=== PATIENT | male | born 1975 | race Caucasian/White ===

== ENCOUNTER 2021-12-08 16:14 | Inpatient (IN) | payer OTHER, SELFPAY ==
[2021-12-08] VITALS (12 sets, daily range): BP systolic 142–222; BP diastolic 83–111; PULSE 52–67; RESP 10–21; TEMP 36.1–36.8; O2SAT 93–98; BMI 29.8
--- NOTE | 2021-12-08 16:30 | DI.RAD.S_ITS ---
PROCEDURE: XR CHEST 1V INDICATIONS: chest pain TECHNIQUE: One view of the chest was acquired. COMPARISON: None. FINDINGS: Surgical changes and devices: None. Lungs and pleura: Lungs are clear. No pleural effusions or pneumothorax. Mediastinum: Mediastinal contours appear normal. Heart size is normal. Bones and chest wall: No suspicious bony lesions. Overlying soft tissues appear unremarkable. IMPRESSION: No acute process. Dictated by: Deshaun Lira M.D. on 12/08/2021 at 16:56 Approved by: Deshaun Lira M.D. on 12/08/2021 at 16:58
--- NOTE | 2021-12-08 16:39 | ED.CHESTPAIN ---
HPI - Chest Pain General Chief Complaint: Chest Pain Stated Complaint: CHEST PAIN Time Seen by Provider: 12/08/21 16:39 Source: patient Mode of arrival: Ambulatory Limitations: no limitations Limitations: no limitations History of Present Illness HPI narrative: This is a 46-year-old male who comes in with complaint of intermittent chest pain. Patient states he has been having symptoms since the holidays this winter. He has seen his primary care physician who started him on propranolol, ordered an echo he does not know the results and he has an event monitor ordered to be placed Wednesday. He has not had any stress testing. He typically would get chest pressure well-seated mostly in the evening but he is find it becomes increasingly more frequent with exertion, walking and takes longer longer to resolve. He does not have a present at this moment but he states walking into the hospital gave him that sensation but resolved while seated. Episodes when it becomes quite intense he feels sweaty and short of breath. He denies any nausea or vomiting. He states the pain will radiate from the center of his chest out both sides and into his arms. Feels like a pressure sensation that will become pain when very intense. He is currently on lisinopril, Mobic, hydrochlorothiazide, escitalopram, propranolol and has been prescribed nitro sublingual but has never tried it. He is not on aspirin or any other blood thinners daily. He has had an appendectomy. No allergies to drugs. He smokes a half pack daily, no alcohol or illicit. His father started having cardiac stents and coronary artery disease in his mid 50s and had CABG x2 but ultimately during his 2nd CABG. He is accompanied by his today. His primary care is at the [facility]. Related Data Home Medications Medication Instructions Recorded Confirmed escitalopram oxalate 5 mg tablet 20 mg PO DAILY 12/08/21 12/08/21 hydrochlorothiazide 25 mg tablet 25 mg PO DAILY 12/08/21 12/08/21 lisinopril 20 mg tablet 20 mg PO DAILY 12/08/21 12/08/21 meloxicam 15 mg tablet 15 mg PO DAILY PRN 12/08/21 12/08/21 nitroglycerin 0.4 mg sublingual 0.4 mg SUBLINGUAL [id number] PRN 12/08/21 12/08/21 tablet propranolol 20 mg tablet 40 mg PO BID PRN 12/08/21 12/08/21 Allergies Allergy/AdvReac Type Severity Reaction Status Date / Time No Known Drug Allergies Allergy Verified 12/08/21 16:26 Review of Systems Review of Systems ROS Unobtainable: All systems reviewed & are unremarkable except as noted in HPI and below Patient History Medical History (Updated 12/08/21 @ 22:06 by ALAN Medina) Chest pain at rest Exertional chest pain PTSD (post-traumatic stress disorder) Family History (Updated 12/08/21 @ 22:05 by ALAN Medina) Father CAD (coronary artery disease) Mother Hypertension Social History household members: spouse and family Smoking Status: Current every day smoker Smoking Status: Current every day smoker alcohol intake frequency: 0-2 drinks per day Substance Use Type: does not use Exam Narrative Exam Narrative: GENERAL: Alert and oriented x three, male in mild distress. HEENT: Head normocephalic, atraumatic, EOMI, pupils reactive, face symmetric, moist mucous membranes NECK: Supple, full range of motion CARDIOVASCULAR: Regular rate and rhythm without murmurs, rubs or gallops. RESPIRATORY: Breath sounds equal bilaterally, no wheezes rales or rhonchi. ABDOMEN: Soft, nontender. Normoactive bowel sounds all 4 quadrants. No guarding or rebound, rigidity, no mass : No CVA tenderness EXTREMITIES: Normal range of motion, no clubbing or edema. Neurovascularly intact NEUROLOGICAL: Cranial nerves II through XII grossly intact. Moving all extremities SKIN: Warm, dry, no petechiae, no rashes or lesions. Initial Vital Signs Initial Vital Signs: Vital Signs Temperature 98.3 F 12/08/21 16:26 Pulse Rate 64 12/08/21 16:26 Respiratory Rate 18 12/08/21 16:26 Blood Pressure 222/111 H 12/08/21 16:26 Pulse Oximetry 98 12/08/21 16:26 Course Orders Ordered: Acetaminophen (Acetaminophen 325 Mg Tablet) 650 mg PO Q6HR PRN PRN Reason: Fever/Mild Pain (1-3) Last Admin: 12/09/21 04:30 Dose: 650 mg Documented by: CECE Aspirin (Aspirin Ec 81 Mg Tablet) 81 mg PO DAILY [facility] Enalaprilat (Enalaprilat 2.5 Mg/ 2 Ml Vial) 0.625 mg IV Q6H [facility] Last Admin: 12/09/21 04:05 Dose: Not Given Documented by: CECE Enoxaparin Sodium (Enoxaparin 40 Mg/0.4 Ml Syringe) 40 mg SUBCUT DAILY [facility] Influenza Virus Vaccine (Influenza Vaccine Qiv 0.5 Ml Syringe) 0.5 ml IM .ONCE ONE Stop: 12/09/21 09:01 Morphine Sulfate (Morphine 2 Mg/Ml Inj) 2 mg IV Q5MIN PRN PRN Reason: Chest Pain Naloxone HCl (Naloxone 0.4 Mg/Ml Vial) 0.2 mg IV Q2MIN PRN PRN Reason: Opiate Reversal Nitroglycerin (Nitroglycerin 0.4 Mg Sl Tab) 0.4 mg SL [id number] PRN PRN Reason: Chest Pain Ondansetron HCl (Ondansetron 4 Mg/2 Ml Inj) 4 mg IV Q6HR PRN PRN Reason: Nausea And Vomiting Discontinued Medications Aspirin (Aspirin 81 Mg Chew Tab) 324 mg PO NOW ONE Stop: 12/08/21 16:42 Last Admin: 12/08/21 16:50 Dose: 324 mg Documented by: LIVIER Enalaprilat (Enalaprilat 2.5 Mg/ 2 Ml Vial) 0.625 mg IV NOW ONE Stop: 12/08/21 22:00 Last Admin: 12/08/21 22:43 Dose: Not Given Documented by: CECE Influenza Virus Vaccine (Influenza Vaccine Qiv 0.5 Ml Syringe) 0.5 ml IM .ONCE ONE Stop: 12/08/21 21:49 Last Admin: 12/09/21 00:26 Dose: Not Given Documented by: CECE Nitroglycerin (Nitroglycerin 0.4 Mg Sl Tab) 0.4 mg SL NOW ONE Stop: 12/08/21 16:50 Last Admin: 12/08/21 16:52 Dose: 0.4 mg Documented by: LIVIER Reevaluation(s) Reevaluation #1: Patient continues to be asymptomatic. Nitro give him a headache. Pressure has improved significantly. Discussed his EKG did not have any acute changes 1st to 2nd. Troponin initial troponin is negative but even if the 2nd is negative discussed with patient I would like to keep him for observation and stress testing and if positive will discuss with Cardiology about potential transfer. Time: 17:45 Consultations Consultation #1: PAULA Bello, hospitalist Time: 19:37 Vital Signs Vital signs: Vital Signs - 8 hr 12/08/21 16:26 12/08/21 16:30 12/08/21 17:00 Temperature 98.3 F Pulse Rate 65 62 67 Respiratory Rate 18 21 Blood Pressure 221/111 H 203/98 H 169/84 H Pulse Oximetry 98 98 94 12/08/21 17:30 12/08/21 18:00 12/08/21 18:30 Temperature Pulse Rate 60 60 55 L Respiratory Rate 15 15 10 L Blood Pressure 145/85 H 142/90 H 150/94 H Pulse Oximetry 95 95 96 12/08/21 19:00 Temperature Pulse Rate 54 L Respiratory Rate 11 L Blood Pressure 163/89 H Pulse Oximetry 95 MDM - Chest Pain Lab Data Result diagrams: 12/09/21 04:00 12/09/21 04:00 Labs: Lab Results 12/08/21 12/08/21 12/08/21 Range/Units 16:32 16:32 16:32 WBC 11.8 H (4.5-11.0) X10^3/uL RBC 5.41 (4.5-5.9) X10^6/uL Hgb 15.2 (13.5-17.5) g/dL Hct 44.4 (41-53) % MCV 82.0 (80-100) fL MCH 28.0 (26-34) PG MCHC 34.2 (30-36) % RDW 13.7 (11.6-14.8) % Plt Count 273 (150-400) X10^3/uL Neut % (Auto) 59.2 (50-75) % Lymph % (Auto) 27.7 (25-40) % [place] % (Auto) 10.9 (3-14) % Eos % (Auto) 1.9 L (2-4) % Baso % (Auto) 0.3 (0-2) % Neut # (Auto) 7000 (5211-7723) /uL Lymph # (Auto) 3300 (7920-3930) /uL [place] # (Auto) 1300 H (0-900) /uL Eos # (Auto) 200 (0-450) /uL Baso # (Auto) 0 (0-100) /uL Sodium 138 (137-145) mmol/L Potassium 4.1 (3.4-5.1) mmol/L Chloride 101 (98-107) mmol/L Carbon Dioxide 28 (22-32) mmol/L BUN 25 H (9-20) mg/dL Creatinine 1.02 (0.66-1.25) mg/dL Estimated GFR > 60.0 (>60) mL/min BUN/Creatinine Ratio 24.5 H (6-22) Glucose 99 (70-100) mg/dL Hemoglobin A1c (4.0-6.0) % Calcium 9.7 (8.4-10.2) mg/dL Magnesium 2.0 (1.6-2.3) mg/dL Total Bilirubin 0.5 (0.2-1.3) mg/dL AST 29 (17-59) IU/L ALT 33 (<50) IU/L Alkaline Phosphatase 102 (38-126) U/L Total Creatine Kinase 86 (55-170) U/L CK-MB (CK-2) TNP CK-MB (CK-2) Rel Index TNP Troponin I < 0.012 (0.01-0.034) ng/mL NT-Pro-B Natriuret Pep 246 H (<125) pg/mL Total Protein 8.2 (6.3-8.2) g/dL Albumin 4.4 (3.5-5.0) g/dL Globulin 3.8 (1.7-4.1) g/dL Albumin/Globulin Ratio 1.2 (1.0-2.8) Lipase 150 (23-300) U/L SARS-CoV-2 (PCR) (Negative) 12/08/21 12/08/21 12/08/21 Range/Units 16:32 16:32 16:54 WBC (4.5-11.0) X10^3/uL RBC (4.5-5.9) X10^6/uL Hgb (13.5-17.5) g/dL Hct (41-53) % MCV (80-100) fL MCH (26-34) PG MCHC (30-36) % RDW (11.6-14.8) % Plt Count (150-400) X10^3/uL Neut % (Auto) (50-75) % Lymph % (Auto) (25-40) % [place] % (Auto) (3-14) % Eos % (Auto) (2-4) % Baso % (Auto) (0-2) % Neut # (Auto) (8996-8510) /uL Lymph # (Auto) (9630-3389) /uL [place] # (Auto) (0-900) /uL Eos # (Auto) (0-450) /uL Baso # (Auto) (0-100) /uL Sodium (137-145) mmol/L Potassium (3.4-5.1) mmol/L Chloride (98-107) mmol/L Carbon Dioxide (22-32) mmol/L BUN (9-20) mg/dL Creatinine (0.66-1.25) mg/dL Estimated GFR (>60) mL/min BUN/Creatinine Ratio (6-22) Glucose (70-100) mg/dL Hemoglobin A1c 5.6 (4.0-6.0) % Calcium (8.4-10.2) mg/dL Magnesium 2.1 (1.6-2.3) mg/dL Total Bilirubin (0.2-1.3) mg/dL AST (17-59) IU/L ALT (<50) IU/L Alkaline Phosphatase (38-126) U/L Total Creatine Kinase (55-170) U/L CK-MB (CK-2) CK-MB (CK-2) Rel Index Troponin I (0.01-0.034) ng/mL NT-Pro-B Natriuret Pep (<125) pg/mL Total Protein (6.3-8.2) g/dL Albumin (3.5-5.0) g/dL Globulin (1.7-4.1) g/dL Albumin/Globulin Ratio (1.0-2.8) Lipase (23-300) U/L SARS-CoV-2 (PCR) Negative (Negative) 12/08/21 Range/Units 18:34 WBC (4.5-11.0) X10^3/uL RBC (4.5-5.9) X10^6/uL Hgb (13.5-17.5) g/dL Hct (41-53) % MCV (80-100) fL MCH (26-34) PG MCHC (30-36) % RDW (11.6-14.8) % Plt Count (150-400) X10^3/uL Neut % (Auto) (50-75) % Lymph % (Auto) (25-40) % [place] % (Auto) (3-14) % Eos % (Auto) (2-4) % Baso % (Auto) (0-2) % Neut # (Auto) (3605-1117) /uL Lymph # (Auto) (1641-4021) /uL [place] # (Auto) (0-900) /uL Eos # (Auto) (0-450) /uL Baso # (Auto) (0-100) /uL Sodium (137-145) mmol/L Potassium (3.4-5.1) mmol/L Chloride (98-107) mmol/L Carbon Dioxide (22-32) mmol/L BUN (9-20) mg/dL Creatinine (0.66-1.25) mg/dL Estimated GFR (>60) mL/min BUN/Creatinine Ratio (6-22) Glucose (70-100) mg/dL Hemoglobin A1c (4.0-6.0) % Calcium (8.4-10.2) mg/dL Magnesium (1.6-2.3) mg/dL Total Bilirubin (0.2-1.3) mg/dL AST (17-59) IU/L ALT (<50) IU/L Alkaline Phosphatase (38-126) U/L Total Creatine Kinase (55-170) U/L CK-MB (CK-2) CK-MB (CK-2) Rel Index Troponin I < 0.012 (0.01-0.034) ng/mL NT-Pro-B Natriuret Pep (<125) pg/mL Total Protein (6.3-8.2) g/dL Albumin (3.5-5.0) g/dL Globulin (1.7-4.1) g/dL Albumin/Globulin Ratio (1.0-2.8) Lipase (23-300) U/L SARS-CoV-2 (PCR) (Negative) Imaging Data Chest x-ray: Radiologist's Impression: Launch?[address] [address] XRay Report Signed Patient: Carlo Abdi MR#: [id number] : 1975 Acct:[id number] Age/Sex: 46 / M Date of Service: 12/08/21 Loc: ED Accession Number: [id number] ?? Procedure: XR chest 1V Ordering Provider: Carey Mccall D.O. PROCEDURE:? XR CHEST 1V ? INDICATIONS:? chest pain ? TECHNIQUE:? One view of the chest was acquired.? ? COMPARISON:? None. ? FINDINGS:? ? Surgical changes and devices:? None.? ? Lungs and pleura:? Lungs are clear.? No pleural effusions or pneumothorax.? ? Mediastinum:? Mediastinal contours appear normal.? Heart size is normal.? ? Bones and chest wall:? No suspicious bony lesions.? Overlying soft tissues appear unremarkable.? ? IMPRESSION:? No acute process. ? ? Dictated by: Deshaun Lira M.D. on 12/08/2021 at 16:56 ? ? Approved by: Deshaun Lira M.D. on 12/08/2021 at 16:58 ECG Data Attestation: I personally reviewed and interpreted this ECG as follows: Interpretation: Sinus rhythm rate of 63 IA 136 QRS of 94 and QTC of 411. Small Q-wave in 2 3 AVF states 1 mL of elevation in V2 V3. No priors for comparison. Patient currently states he is asymptomatic. EKG2. Sinus rhythm rate of 62 IA 148 QRS of 92 and QTC of 418. EKG appears similar to prior from today with no dynamic changes. EKG 3 sinus bradycardia, rate of 55 IA 148 QRS of 96 and QTC 419. LVH criteria. EKG similar to prior EKGs from today. No dynamic changes. MDM Narrative Medical decision making narrative: This is a 46-year-old male who comes emergency department with complaint of chest pain. Patient states he has had intermittent chest pain initially just with rash and now increasingly with exertion which has become more persistent and prolonged. Patient initial EKG has some concerns for ST elevation but he is without chest pain currently. He is quite hypertensive so was given a dose of nitro. Discussed headache. He has not had any additional chest pain and repeat EKG was negative with initial negative troponin. Patient's chest x-ray and labs do not show other acute changes discussed with patient even if a 2nd troponin is negative I would like to keep him for observation and stress testing and if positive plan for transfer for heart catheterization. Patient signed out to Dr. Harmon while awaiting callback from hospitalist for observation. Patient has 2 negative troponins, no dynamic EKG changes. Likely LVH on her EKG but he is asymptomatic without chest pain actively although there is some elevation in V2 V3 leads. Discharge Plan Departure Patient Disposition: Admitted As Inpatient Clinical Impression: Unstable angina Admit Date/Time: 12/08/21 20:33 Admit Provider: Nannette Bello
[2021-12-08 16:43] LABS: Add Manual Diff / Slide Review NO; Basophils Absolute Auto 0 /uL (0-100); Basophils Percent Auto 0.3 % (0-2); Eosinophils Absolute Auto 200 /uL (0-450); Eosinophils Percent Auto 1.9 % (2-4); Hematocrit 44.4 % (41-53); Hemoglobin 15.2 g/dL (13.5-17.5); Lymphocytes Absolute Auto 3300 /uL (1100-4500); Lymphocytes Percent Auto 27.7 % (25-40); Mean Corpuscular HGB Conc 34.2 % (30-36); Monocytes Absolute Auto 1300 /uL (0-900); Monocytes Percent Auto 10.9 % (3-14); Neutrophils Absolute Auto 7000 /uL (1500-7000); Neutrophils Percent Auto 59.2 % (50-75); Platelet Count 273 X10^3/uL (150-400); Red Blood Cell Count 5.41 X10^6/uL (4.5-5.9); Red Cell Distribution Width 13.7 % (11.6-14.8); White Blood Cell Count 11.8 X10^3/uL (4.5-11.0)
[2021-12-08] MEDS: ASPIRIN 81 MG CHEW TAB 324 MG PO (16:50)
[2021-12-08] MEDS: NITROGLYCERIN 0.4 MG SL TAB SL (16:52)
[2021-12-08 16:59] LABS: Alanine Aminotransferase 33 IU/L (<50); Albumin 4.4 g/dL (3.5-5.0); Albumin Globulin Ratio 1.2 (1.0-2.8); Alkaline Phosphatase 102 U/L (38-126); Aspartate Aminotransferase 29 IU/L (17-59); BUN Creatinine Ratio 24.5 (6-22); Bilirubin Total 0.5 mg/dL (0.2-1.3); Blood Urea Nitrogen 25 mg/dL (9-20); Calcium 9.7 mg/dL (8.4-10.2); Carbon Dioxide 28 mmol/L (22-32); Chloride 101 mmol/L (98-107); Creatine Kinase 86 U/L (55-170); Estimated Glomerular Filt Rate > 60.0 mL/min (>60); Globulin 3.8 g/dL (1.7-4.1); Glucose 99 mg/dL (70-100); HEMOLYSIS 27 (0-50); Lipase 150 U/L (23-300); Potassium 4.1 mmol/L (3.4-5.1); Sodium 138 mmol/L (137-145); Total Protein 8.2 g/dL (6.3-8.2)
[2021-12-08 17:06] LABS: NT-proBNP (BNP-Adult 18+) 246 pg/mL (<125)
[2021-12-08 17:09] LABS: Troponin I < 0.012 ng/mL (0.01-0.034)
[2021-12-08 17:20] LABS: COVID19 -Nasal RAPID Negative (Negative)
[2021-12-08 19:06] LABS: Troponin I < 0.012 ng/mL (0.01-0.034)
--- NOTE | 2021-12-08 20:26 | ED_ITS ---
HPI - Chest Pain General Chief Complaint: Chest Pain Stated Complaint: CHEST PAIN Time Seen by Provider: 12/08/21 16:39 Source: patient Mode of arrival: Ambulatory Limitations: no limitations Limitations: no limitations Related Data Home Medications Medication Instructions Recorded Confirmed escitalopram oxalate 5 mg tablet 20 mg PO DAILY 12/08/21 12/08/21 hydrochlorothiazide 25 mg tablet 25 mg PO DAILY 12/08/21 12/08/21 lisinopril 20 mg tablet 20 mg PO DAILY 12/08/21 12/08/21 meloxicam 15 mg tablet 15 mg PO DAILY PRN 12/08/21 12/08/21 nitroglycerin 0.4 mg sublingual 0.4 mg SUBLINGUAL [id number] PRN 12/08/21 12/08/21 tablet propranolol 20 mg tablet 40 mg PO BID PRN 12/08/21 12/08/21 Allergies Allergy/AdvReac Type Severity Reaction Status Date / Time No Known Drug Allergies Allergy Verified 12/08/21 16:26 Patient History Medical History (Updated 12/08/21 @ 22:06 by ALAN Medina) Chest pain at rest Exertional chest pain PTSD (post-traumatic stress disorder) Family History (Updated 12/08/21 @ 22:05 by ALAN Medina) Father CAD (coronary artery disease) Mother Hypertension Social History household members: spouse and family Smoking Status: Current every day smoker Smoking Status: Current every day smoker alcohol intake frequency: 0-2 drinks per day Substance Use Type: does not use Exam Initial Vital Signs Initial Vital Signs: Vital Signs Temperature 98.3 F 12/08/21 16:26 Pulse Rate 64 12/08/21 16:26 Respiratory Rate 18 12/08/21 16:26 Blood Pressure 222/111 H 12/08/21 16:26 Pulse Oximetry 98 12/08/21 16:26 Course Orders Ordered: Acetaminophen (Acetaminophen 325 Mg Tablet) 650 mg PO Q6HR PRN PRN Reason: Fever/Mild Pain (1-3) Last Admin: 12/09/21 04:30 Dose: 650 mg Documented by: CECE Aspirin (Aspirin Ec 81 Mg Tablet) 81 mg PO DAILY [facility] Enalaprilat (Enalaprilat 2.5 Mg/ 2 Ml Vial) 0.625 mg IV Q6H [facility] Last Admin: 12/09/21 04:05 Dose: Not Given Documented by: CECE Enoxaparin Sodium (Enoxaparin 40 Mg/0.4 Ml Syringe) 40 mg SUBCUT DAILY [facility] Influenza Virus Vaccine (Influenza Vaccine Qiv 0.5 Ml Syringe) 0.5 ml IM .ONCE ONE Stop: 12/09/21 09:01 Morphine Sulfate (Morphine 2 Mg/Ml Inj) 2 mg IV Q5MIN PRN PRN Reason: Chest Pain Naloxone HCl (Naloxone 0.4 Mg/Ml Vial) 0.2 mg IV Q2MIN PRN PRN Reason: Opiate Reversal Nitroglycerin (Nitroglycerin 0.4 Mg Sl Tab) 0.4 mg SL [id number] PRN PRN Reason: Chest Pain Ondansetron HCl (Ondansetron 4 Mg/2 Ml Inj) 4 mg IV Q6HR PRN PRN Reason: Nausea And Vomiting Discontinued Medications Aspirin (Aspirin 81 Mg Chew Tab) 324 mg PO NOW ONE Stop: 12/08/21 16:42 Last Admin: 12/08/21 16:50 Dose: 324 mg Documented by: LIVIER Enalaprilat (Enalaprilat 2.5 Mg/ 2 Ml Vial) 0.625 mg IV NOW ONE Stop: 12/08/21 22:00 Last Admin: 12/08/21 22:43 Dose: Not Given Documented by: CECE Influenza Virus Vaccine (Influenza Vaccine Qiv 0.5 Ml Syringe) 0.5 ml IM .ONCE ONE Stop: 12/08/21 21:49 Last Admin: 12/09/21 00:26 Dose: Not Given Documented by: CECE Nitroglycerin (Nitroglycerin 0.4 Mg Sl Tab) 0.4 mg SL NOW ONE Stop: 12/08/21 16:50 Last Admin: 12/08/21 16:52 Dose: 0.4 mg Documented by: LIVIER Vital Signs Vital signs: Vital Signs - 8 hr 12/08/21 16:26 12/08/21 16:30 12/08/21 17:00 Temperature 98.3 F Pulse Rate 65 62 67 Respiratory Rate 18 21 Blood Pressure 221/111 H 203/98 H 169/84 H Pulse Oximetry 98 98 94 12/08/21 17:30 12/08/21 18:00 12/08/21 18:30 Temperature Pulse Rate 60 60 55 L Respiratory Rate 15 15 10 L Blood Pressure 145/85 H 142/90 H 150/94 H Pulse Oximetry 95 95 96 12/08/21 19:00 Temperature Pulse Rate 54 L Respiratory Rate 11 L Blood Pressure 163/89 H Pulse Oximetry 95 MDM - Chest Pain Lab Data Result diagrams: 12/09/21 04:00 12/09/21 04:00 Labs: Lab Results 12/08/21 12/08/21 12/08/21 Range/Units 16:32 16:32 16:32 WBC 11.8 H (4.5-11.0) X10^3/uL RBC 5.41 (4.5-5.9) X10^6/uL Hgb 15.2 (13.5-17.5) g/dL Hct 44.4 (41-53) % MCV 82.0 (80-100) fL MCH 28.0 (26-34) PG MCHC 34.2 (30-36) % RDW 13.7 (11.6-14.8) % Plt Count 273 (150-400) X10^3/uL Neut % (Auto) 59.2 (50-75) % Lymph % (Auto) 27.7 (25-40) % [place] % (Auto) 10.9 (3-14) % Eos % (Auto) 1.9 L (2-4) % Baso % (Auto) 0.3 (0-2) % Neut # (Auto) 7000 (3198-6425) /uL Lymph # (Auto) 3300 (4818-8946) /uL [place] # (Auto) 1300 H (0-900) /uL Eos # (Auto) 200 (0-450) /uL Baso # (Auto) 0 (0-100) /uL Sodium 138 (137-145) mmol/L Potassium 4.1 (3.4-5.1) mmol/L Chloride 101 (98-107) mmol/L Carbon Dioxide 28 (22-32) mmol/L BUN 25 H (9-20) mg/dL Creatinine 1.02 (0.66-1.25) mg/dL Estimated GFR > 60.0 (>60) mL/min BUN/Creatinine Ratio 24.5 H (6-22) Glucose 99 (70-100) mg/dL Hemoglobin A1c (4.0-6.0) % Calcium 9.7 (8.4-10.2) mg/dL Magnesium 2.0 (1.6-2.3) mg/dL Total Bilirubin 0.5 (0.2-1.3) mg/dL AST 29 (17-59) IU/L ALT 33 (<50) IU/L Alkaline Phosphatase 102 (38-126) U/L Total Creatine Kinase 86 (55-170) U/L CK-MB (CK-2) TNP CK-MB (CK-2) Rel Index TNP Troponin I < 0.012 (0.01-0.034) ng/mL NT-Pro-B Natriuret Pep 246 H (<125) pg/mL Total Protein 8.2 (6.3-8.2) g/dL Albumin 4.4 (3.5-5.0) g/dL Globulin 3.8 (1.7-4.1) g/dL Albumin/Globulin Ratio 1.2 (1.0-2.8) Lipase 150 (23-300) U/L SARS-CoV-2 (PCR) (Negative) 12/08/21 12/08/21 12/08/21 Range/Units 16:32 16:32 16:54 WBC (4.5-11.0) X10^3/uL RBC (4.5-5.9) X10^6/uL Hgb (13.5-17.5) g/dL Hct (41-53) % MCV (80-100) fL MCH (26-34) PG MCHC (30-36) % RDW (11.6-14.8) % Plt Count (150-400) X10^3/uL Neut % (Auto) (50-75) % Lymph % (Auto) (25-40) % [place] % (Auto) (3-14) % Eos % (Auto) (2-4) % Baso % (Auto) (0-2) % Neut # (Auto) (1730-6169) /uL Lymph # (Auto) (1884-8786) /uL [place] # (Auto) (0-900) /uL Eos # (Auto) (0-450) /uL Baso # (Auto) (0-100) /uL Sodium (137-145) mmol/L Potassium (3.4-5.1) mmol/L Chloride (98-107) mmol/L Carbon Dioxide (22-32) mmol/L BUN (9-20) mg/dL Creatinine (0.66-1.25) mg/dL Estimated GFR (>60) mL/min BUN/Creatinine Ratio (6-22) Glucose (70-100) mg/dL Hemoglobin A1c 5.6 (4.0-6.0) % Calcium (8.4-10.2) mg/dL Magnesium 2.1 (1.6-2.3) mg/dL Total Bilirubin (0.2-1.3) mg/dL AST (17-59) IU/L ALT (<50) IU/L Alkaline Phosphatase (38-126) U/L Total Creatine Kinase (55-170) U/L CK-MB (CK-2) CK-MB (CK-2) Rel Index Troponin I (0.01-0.034) ng/mL NT-Pro-B Natriuret Pep (<125) pg/mL Total Protein (6.3-8.2) g/dL Albumin (3.5-5.0) g/dL Globulin (1.7-4.1) g/dL Albumin/Globulin Ratio (1.0-2.8) Lipase (23-300) U/L SARS-CoV-2 (PCR) Negative (Negative) 12/08/21 Range/Units 18:34 WBC (4.5-11.0) X10^3/uL RBC (4.5-5.9) X10^6/uL Hgb (13.5-17.5) g/dL Hct (41-53) % MCV (80-100) fL MCH (26-34) PG MCHC (30-36) % RDW (11.6-14.8) % Plt Count (150-400) X10^3/uL Neut % (Auto) (50-75) % Lymph % (Auto) (25-40) % [place] % (Auto) (3-14) % Eos % (Auto) (2-4) % Baso % (Auto) (0-2) % Neut # (Auto) (6691-7457) /uL Lymph # (Auto) (5255-5230) /uL [place] # (Auto) (0-900) /uL Eos # (Auto) (0-450) /uL Baso # (Auto) (0-100) /uL Sodium (137-145) mmol/L Potassium (3.4-5.1) mmol/L Chloride (98-107) mmol/L Carbon Dioxide (22-32) mmol/L BUN (9-20) mg/dL Creatinine (0.66-1.25) mg/dL Estimated GFR (>60) mL/min BUN/Creatinine Ratio (6-22) Glucose (70-100) mg/dL Hemoglobin A1c (4.0-6.0) % Calcium (8.4-10.2) mg/dL Magnesium (1.6-2.3) mg/dL Total Bilirubin (0.2-1.3) mg/dL AST (17-59) IU/L ALT (<50) IU/L Alkaline Phosphatase (38-126) U/L Total Creatine Kinase (55-170) U/L CK-MB (CK-2) CK-MB (CK-2) Rel Index Troponin I < 0.012 (0.01-0.034) ng/mL NT-Pro-B Natriuret Pep (<125) pg/mL Total Protein (6.3-8.2) g/dL Albumin (3.5-5.0) g/dL Globulin (1.7-4.1) g/dL Albumin/Globulin Ratio (1.0-2.8) Lipase (23-300) U/L SARS-CoV-2 (PCR) (Negative) Discharge Plan Departure Patient Disposition: Admitted As Inpatient Clinical Impression: Unstable angina Admit Date/Time: 12/08/21 20:33 Admit Provider: Nannette Bello
--- NOTE | 2021-12-08 20:51 | DI.NM.S_ITS ---
PROCEDURE: NM CHRISTIANO PERF SPECT REST & STR Rest and exercise myocardial perfusion SPECT with gated imaging and ejection fraction RADIOPHARMACEUTICAL: 11.8 mCi Tc-99m sestamibi IV at rest and 25.7 mCi Tc-99m sestamibi IV at peak exercise. A one day-protocol was performed. INDICATIONS: chest pain TECHNIQUE: Radiopharmaceutical was injected at peak stress test, and also at rest. SPECT images were obtained. SPECT myocardial perfusion images were displayed in short axis, horizontal long axis, and vertical long axis views. Gated images were reviewed using MIGSIF software. COMPARISON: None. CARDIAC STRESS: A standard Barry treadmill exercise tolerance test was performed by the patient under the supervision of an attending staff. The patient exercised for 6 minutes and 20 seconds; functional aerobic impairment (DAVIDE) is +35%. Hemodynamic data: There is normal blood pressure and heart rate response to exercise stress. Patient achieved 80% of maximum predicted heart rate at peak exercise. Symptoms: Patient had exertional chest discomfort that worsened with continued exercise. Treadmill stopped. Nitroglycerin sublingual given and it resolved the chest discomfort. EKG: Mild horizontal to downsloping ST depressions with exercise and recovery; no significant ectopy. FINDINGS: Raw data: There is good myocardial labeling by radiotracer. No significant motion artifacts. Left ventricle function: Gated images demonstrate normal left ventricle wall thickening. No segmental wall motion abnormality. No transient ischemic dilation; TID is 0.91 (normal less than 1.3). The left ventricle resting end-diastolic volume is 106 mL. Left ventricle stress ejection fraction is 65%; normal values are above 45%. Myocardial perfusion: There is reversible severely intense lateral wall defect that is consistent with ischemia. No infarction. IMPRESSION: Abnormal treadmill nuclear stress test consistent with lateral wall ischemia. 1) There is reversible severely intense lateral wall defect that is consistent with ischemia. No infarction. SSS 14, SRS 2. 2) Normal left ventricular size, wall motion, and systolic function (EF post stress 65%). 3) ST changes with exercise also suggest ischemia. 4) Angina during the study that resolved with nitroglycerin PRN. 5) Reduced exercise capacity (DAVIDE +35%). 6) Only 80% of maximum predicted heart rate reached as the study stopped due to angina. 7) No prior nuclear stress test available for comparison. Findings discussed with the hospitalist team. Will arrange for transfer to [facility] for invasive coronary angiography with probable PCI. Dictated by: Arian Thompson MD on 12/10/2021 at 15:08 Approved by: Arian Thompson MD on 12/10/2021 at 15:15
[2021-12-08 21:11] LABS: Hemoglobin A1C% w Est Avg Glu 5.6 % (4.0-6.0)
[2021-12-08 21:18] LABS: Magnesium 2.1 mg/dL (1.6-2.3)
--- NOTE | 2021-12-08 21:54 | P.HP_ITS ---
History of Present Illness History of Present Illness Date Patient Seen: 12/08/21 Time Patient Seen: 21:30 Chief complaint: CHEST PAIN Narrative: Carlo enrique is a 46 y.o. male with minimal medical issues presented at the request of his [employer] PCP due to complaints of chest pain he has had for the past 3-4 months. Initially, he stated it would only bother him at rest, but has been increasing with exertion over the past several days. He describes it as starting in the middle of his chest, radiating to both sides of his chest, then down his arms to a point where his hands start to become numb. He denies diaphoresis, neck pain, shortness of breath, nausea or vomiting, abdominal pain, dysurea, diarrhea or constipation. He has had headaches particularly worsened preceding the chest pain. He has been maintaining a log for his blood pressures and has been as high as 200-235/100-130s. He does not remember his PCPs name, but stated he recently went to [facility] for an echocardiogram and had an appointment for this coming Wednesday with his PCP to place and event monitor. Review of the echocardiogram performed at [facility] on 11/18/21 noted mild concentric left ventricular hypertrophy with an EF of 65-70%. Chest x-ray ordered in the ED was negative for any acute cardiopulmonary process. Patient's temp is 97.0?, blood pressure 165/83, heart rate 52, respiratory rate 18, as oxygen saturation is 97% on room air he weighs 97 kg with a BMI of 29.8. His WBC is mildly elevated 11.8 however the rest of his panel is within normal limits does have a mildly elevated monocyte count of 1300, sodium 138 potassium 4.1 chloride 101 bicarb 28 BUN 25 creatinine 1.02 with EGFR of greater than 60 glucose 99 A1c is 5.6 Mag is 2.1 liver enzymes within normal limits, troponin x2 are negative any is due for 3rd 1 at 13 30, S proBNP is mildly elevated at 246, COVID-19 PCR is negative. Patient History Medical History (Updated 12/08/21 @ 22:06 by ALAN Medina) Chest pain at rest Exertional chest pain PTSD (post-traumatic stress disorder) Family & Social History Family History (Updated 12/08/21 @ 22:05 by Nannette Bello, RENAL TECHNICIAN) Father CAD (coronary artery disease) Mother Hypertension Social History: household members spouse,family Prior Living Arrangements House Safety & Behavioral: Feels Safe in Current Yes Environment Been Physically Hurt or No Threatened By a Person Suicidal Ideation Description None Suicide Plan Description No Plan Tobacco & Substance use: Smoking Status Current every day smoker 1/2 + ppd alcohol intake frequency 0-2 drinks per day Substance Use Type does not use Meds Home Medications and Allergies Home Medications Medication Instructions Recorded Confirmed Type escitalopram oxalate 5 mg tablet 20 mg PO DAILY 12/08/21 12/08/21 History hydrochlorothiazide 25 mg tablet 25 mg PO DAILY 12/08/21 12/08/21 History lisinopril 20 mg tablet 20 mg PO DAILY 12/08/21 12/08/21 History meloxicam 15 mg tablet 15 mg PO DAILY PRN 12/08/21 12/08/21 History nitroglycerin 0.4 mg sublingual 0.4 mg SUBLINGUAL 12/08/21 History tablet propranolol 20 mg tablet 40 mg PO BID PRN 12/08/21 12/08/21 History Allergies Allergy/AdvReac Type Severity Reaction Status Date / Time No Known Drug Allergies Allergy Verified 12/08/21 16:26 Review of Systems Review of Systems ROS: Yes All systems reviewed with the patient and are negative except as otherwise documented Exam Vital Signs (past 8 hours): - 12/08/21 16:26 12/08/21 16:30 12/08/21 17:00 Temperature 98.3 F Pulse Rate 65 62 67 Respiratory Rate 18 21 Blood Pressure 221/111 H 203/98 H 169/84 H Pulse Oximetry 98 98 94 12/08/21 17:30 12/08/21 18:00 12/08/21 18:30 Temperature Pulse Rate 60 60 55 L Respiratory Rate 15 15 10 L Blood Pressure 145/85 H 142/90 H 150/94 H Pulse Oximetry 95 95 96 12/08/21 19:00 12/08/21 19:30 12/08/21 20:00 Temperature Pulse Rate 54 L 53 L 54 L Respiratory Rate 11 L 14 20 Blood Pressure 163/89 H 168/85 H 159/88 H Pulse Oximetry 95 95 93 12/08/21 20:30 12/08/21 21:00 Temperature Pulse Rate 54 L 52 L Respiratory Rate 21 17 Blood Pressure 156/86 H 180/91 H Pulse Oximetry 94 94 Oxygen Delivery Method Room Air Narrative Exam Narrative: Gen: Alert, oriented, well-developed 46 y.o. male, mildly anxious and fatigued HEENT: normocephalic, atraumatic, conjunctiva clear, sclera non-icteric, oral mucosa pink and moist Neck: supple, full ROM, no JVD, trachea is midline Resp: Lungs CTA, non-labored breathing CV: RRR, no murmur or rubs Abd: soft, non-tender, normoactive BTs Skin: yen complexion, no lesions or rashes, dry and intact Neuro: Alert and oriented X 4 w/no focal deficits. Speech clear and coherent. Extremities: moves all 4 extremities, is ambulatory, negative Reba?s sign Psyche: normal mood and affect. Objective ECG Impression: 2 EKGs were done, initially questioned inferior infarct, the latter noting possible normal variant. No obvious ST changes seen by me. Labs Result Diagrams: 12/08/21 16:32 12/08/21 16:32 Labs: Laboratory Results - last 24 hr 12/08/21 12/08/21 12/08/21 16:32 16:32 16:32 WBC 11.8 H RBC 5.41 Hgb 15.2 Hct 44.4 MCV 82.0 MCH 28.0 MCHC 34.2 RDW 13.7 Plt Count 273 Neut % (Auto) 59.2 Lymph % (Auto) 27.7 [place] % (Auto) 10.9 Eos % (Auto) 1.9 L Baso % (Auto) 0.3 Neut # (Auto) 7000 Lymph # (Auto) 3300 [place] # (Auto) 1300 H Eos # (Auto) 200 Baso # (Auto) 0 Sodium 138 Potassium 4.1 Chloride 101 Carbon Dioxide 28 BUN 25 H Creatinine 1.02 Estimated GFR > 60.0 BUN/Creatinine Ratio 24.5 H Glucose 99 Hemoglobin A1c Calcium 9.7 Magnesium 2.0 Total Bilirubin 0.5 AST 29 ALT 33 Alkaline Phosphatase 102 Total Creatine Kinase 86 CK-MB (CK-2) TNP CK-MB (CK-2) Rel Index TNP Troponin I < 0.012 NT-Pro-B Natriuret Pep 246 H Total Protein 8.2 Albumin 4.4 Globulin 3.8 Albumin/Globulin Ratio 1.2 Lipase 150 SARS-CoV-2 (PCR) 12/08/21 12/08/2122 16:32 16:32 16:54 WBC RBC Hgb Hct MCV MCH MCHC RDW Plt Count Neut % (Auto) Lymph % (Auto) [place] % (Auto) Eos % (Auto) Baso % (Auto) Neut # (Auto) Lymph # (Auto) [place] # (Auto) Eos # (Auto) Baso # (Auto) Sodium Potassium Chloride Carbon Dioxide BUN Creatinine Estimated GFR BUN/Creatinine Ratio Glucose Hemoglobin A1c 5.6 Calcium Magnesium 2.1 Total Bilirubin AST ALT Alkaline Phosphatase Total Creatine Kinase CK-MB (CK-2) CK-MB (CK-2) Rel Index Troponin I NT-Pro-B Natriuret Pep Total Protein Albumin Globulin Albumin/Globulin Ratio Lipase SARS-CoV-2 (PCR) Negative 12/08/21 18:34 WBC RBC Hgb Hct MCV MCH MCHC RDW Plt Count Neut % (Auto) Lymph % (Auto) [place] % (Auto) Eos % (Auto) Baso % (Auto) Neut # (Auto) Lymph # (Auto) [place] # (Auto) Eos # (Auto) Baso # (Auto) Sodium Potassium Chloride Carbon Dioxide BUN Creatinine Estimated GFR BUN/Creatinine Ratio Glucose Hemoglobin A1c Calcium Magnesium Total Bilirubin AST ALT Alkaline Phosphatase Total Creatine Kinase CK-MB (CK-2) CK-MB (CK-2) Rel Index Troponin I < 0.012 NT-Pro-B Natriuret Pep Total Protein Albumin Globulin Albumin/Globulin Ratio Lipase SARS-CoV-2 (PCR) Assessment & Plan Assessment & Plan narrative: Carlo Abdi is placed into observation further evaluation and workup of chest pain 1. Chest pain r/o ACS, acute, present on admission ? Last echo done on 11/18/21 at [facility], so have ordered a new one ? Pharmacological stress test ? Start ASA 81 mg ? Received nitro X 1 in the ED, gave him a headache, a common side effect ? EKG shows no ischemic changes ? Trend troponin X 3, first 2 are negative 2. Hypertensive urgency, malignant, acute and present on admission * Continue home dose of lisinopril 20 mg po daily * Enalapril 0.625 mg IV q 6 hours until systolic pressure falls below 145 3. HLD ? Lipid panel, pending ? Start/continue atorvastatin 40 mg po at bedtime 4. Tobacco dependence * Counseling provided on smoking cessation, 10 minutes 5. PTSD * Continue home dose of lexapro 5 mg po daily Risk stratification ? Fasting lipid panel scheduled for 0500 labs ? A1c 5.6%, not diabetic VTE Prophylaxis: Wells risk score [X]Enoxaparin 40 mg subQ once daily X Bilateral SCDs Patient is placed into observation as his stay is not expected to exceed 2 midnights. FEN: IV fluids: saline lock, diet: heart healthy, labs: CBC, C/BMP, liver enzymes, Mag, PT/INR Consultants None Dispo: probable d/c to home w/outpatient follow up Code status: Full code as discussed with the patient who identifies his Nicole as his surrogate and POA. [X] I have utilized all available immediate resources to obtain, update, or review of the patient's current medications COVID-19 COVID-19 status: Negative Result date/Date tested (Pos, Neg/Pending): 12/07/21 Quality VTE Deep Vein Thrombosis/Pulmonary Embolism Present on Admission: No MIPS - Admit I confirm the patient?s Advance Care Plan is present, Code status is documented, Surrogate decision maker is in patient?s record [If Yes, STOP here]: Yes MIPS - DC The patient has current or prior documentation of left ventricular ejection fraction (LVEF) less than 40%, or moderate or severely depressed left ventricular systolic function.: No
[2021-12-09] VITALS (8 sets, daily range): BP systolic 144–168; BP diastolic 80–93; PULSE 53–71; RESP 14–18; TEMP 36.2–36.4; O2SAT 97–98
[2021-12-09 01:13] LABS: Troponin I < 0.012 ng/mL (0.01-0.034)
[2021-12-09 04:28] LABS: Add Manual Diff / Slide Review NO; Basophils Absolute Auto 100 /uL (0-100); Basophils Percent Auto 1.3 % (0-2); Eosinophils Absolute Auto 200 /uL (0-450); Eosinophils Percent Auto 2.8 % (2-4); Hematocrit 43.1 % (41-53); Hemoglobin 14.6 g/dL (13.5-17.5); Lymphocytes Absolute Auto 3100 /uL (1100-4500); Lymphocytes Percent Auto 36.2 % (25-40); Mean Corpuscular HGB Conc 33.8 % (30-36); Mean Corpuscular Hemoglobin 27.7 PG (26-34); Mean Corpuscular Volume 81.9 fL (80-100); Monocytes Absolute Auto 1000 /uL (0-900); Monocytes Percent Auto 11.7 % (3-14); Neutrophils Absolute Auto 4100 /uL (1500-7000); Platelet Count 230 X10^3/uL (150-400); Red Blood Cell Count 5.27 X10^6/uL (4.5-5.9); Red Cell Distribution Width 13.9 % (11.6-14.8); White Blood Cell Count 8.5 X10^3/uL (4.5-11.0)
[2021-12-09] MEDS: ACETAMINOPHEN 325 MG TABLET 650 MG PO ×2 (04:30→22:37)
[2021-12-09 04:42] LABS: Alanine Aminotransferase 32 IU/L (<50); Albumin Globulin Ratio 1.3 (1.0-2.8); Alkaline Phosphatase 97 U/L (38-126); Aspartate Aminotransferase 23 IU/L (17-59); BUN Creatinine Ratio 22.7 (6-22); Bilirubin Total 0.4 mg/dL (0.2-1.3); Bilirubin Unconjugated 0.4 mg/dL (0.0-1.1); Blood Urea Nitrogen 20 mg/dL (9-20); Calcium 9.1 mg/dL (8.4-10.2); Carbon Dioxide 26 mmol/L (22-32); Chloride 103 mmol/L (98-107); Cholesterol 263 mg/dL (140-199); Estimated Glomerular Filt Rate > 60.0 mL/min (>60); Globulin 3.2 g/dL (1.7-4.1); Glucose 99 mg/dL (70-100); HDL Cholesterol 30 mg/dL (40-60); HEMOLYSIS < 15 (0-50); LDL Cholesterol Calculated 182 mg/dL (<100); Potassium 3.9 mmol/L (3.4-5.1); Sodium 138 mmol/L (137-145); Total Protein 7.2 g/dL (6.3-8.2); Triglycerides 254 mg/dL (35-150)
[2021-12-09] MEDS: ASPIRIN EC 81 MG TABLET PO (08:52)
[2021-12-09] MEDS: ENOXAPARIN 40 MG/0.4 ML SYRINGE SUBCUT (08:53)
--- NOTE | 2021-12-09 12:16 | P.PN_ITS ---
Subjective Subjective Date Patient Seen: 12/09/21 Time Patient Seen: 08:00 Interval history: He has no chest pain. He is waiting stress test. Exam Vital Signs (past 8 hours): - 12/09/21 04:42 12/09/21 08:30 12/09/21 09:33 Temperature 97.2 F L 97.6 F Pulse Rate 54 L 53 L 59 L Respiratory Rate 18 18 Blood Pressure 147/93 H 168/90 H 148/88 H Pulse Oximetry 97 98 98 12/09/21 10:03 12/09/21 11:53 Temperature 97.6 F Pulse Rate 55 L Respiratory Rate 18 Blood Pressure 160/92 H Pulse Oximetry 97 98 Oxygen Delivery Method Room Air Oxygen Flow Rate 0 Narrative Exam Narrative: GEN: no acute distress CV: regular rate and rhythm, no murmurs PULM: clear bilaterally Objective Labs Result Diagrams: 12/09/21 04:00 12/09/21 04:00 Labs: Laboratory Results - last 24 hr 12/08/21 12/08/21 12/08/21 16:32 16:32 16:32 WBC 11.8 H RBC 5.41 Hgb 15.2 Hct 44.4 MCV 82.0 MCH 28.0 MCHC 34.2 RDW 13.7 Plt Count 273 Neut % (Auto) 59.2 Lymph % (Auto) 27.7 [place] % (Auto) 10.9 Eos % (Auto) 1.9 L Baso % (Auto) 0.3 Neut # (Auto) 7000 Lymph # (Auto) 3300 [place] # (Auto) 1300 H Eos # (Auto) 200 Baso # (Auto) 0 Sodium 138 Potassium 4.1 Chloride 101 Carbon Dioxide 28 BUN 25 H Creatinine 1.02 Estimated GFR > 60.0 BUN/Creatinine Ratio 24.5 H Glucose 99 Hemoglobin A1c Calcium 9.7 Magnesium 2.0 Total Bilirubin 0.5 Conjugated Bilirubin Unconjugated Bilirubin AST 29 ALT 33 Alkaline Phosphatase 102 Total Creatine Kinase 86 CK-MB (CK-2) TNP CK-MB (CK-2) Rel Index TNP Troponin I < 0.012 NT-Pro-B Natriuret Pep 246 H Total Protein 8.2 Albumin 4.4 Globulin 3.8 Albumin/Globulin Ratio 1.2 Triglycerides Cholesterol LDL Cholesterol, Calc HDL Cholesterol Lipase 150 SARS-CoV-2 (PCR) 12/08/21 12/08/21 12/08/21 16:32 16:32 16:54 WBC RBC Hgb Hct MCV MCH MCHC RDW Plt Count Neut % (Auto) Lymph % (Auto) [place] % (Auto) Eos % (Auto) Baso % (Auto) Neut # (Auto) Lymph # (Auto) [place] # (Auto) Eos # (Auto) Baso # (Auto) Sodium Potassium Chloride Carbon Dioxide BUN Creatinine Estimated GFR BUN/Creatinine Ratio Glucose Hemoglobin A1c 5.6 Calcium Magnesium 2.1 Total Bilirubin Conjugated Bilirubin Unconjugated Bilirubin AST ALT Alkaline Phosphatase Total Creatine Kinase CK-MB (CK-2) CK-MB (CK-2) Rel Index Troponin I NT-Pro-B Natriuret Pep Total Protein Albumin Globulin Albumin/Globulin Ratio Triglycerides Cholesterol LDL Cholesterol, Calc HDL Cholesterol Lipase SARS-CoV-2 (PCR) Negative 12/08/21 12/09/21 12/09/21 18:34 00:41 04:00 WBC 8.5 RBC 5.27 Hgb 14.6 Hct 43.1 MCV 81.9 MCH 27.7 MCHC 33.8 RDW 13.9 Plt Count 230 Neut % (Auto) 48.0 L Lymph % (Auto) 36.2 [place] % (Auto) 11.7 Eos % (Auto) 2.8 Baso % (Auto) 1.3 Neut # (Auto) 4100 Lymph # (Auto) 3100 [place] # (Auto) 1000 H Eos # (Auto) 200 Baso # (Auto) 100 Sodium Potassium Chloride Carbon Dioxide BUN Creatinine Estimated GFR BUN/Creatinine Ratio Glucose Hemoglobin A1c Calcium Magnesium Total Bilirubin Conjugated Bilirubin Unconjugated Bilirubin AST ALT Alkaline Phosphatase Total Creatine Kinase CK-MB (CK-2) CK-MB (CK-2) Rel Index Troponin I < 0.012 < 0.012 NT-Pro-B Natriuret Pep Total Protein Albumin Globulin Albumin/Globulin Ratio Triglycerides Cholesterol LDL Cholesterol, Calc HDL Cholesterol Lipase SARS-CoV-2 (PCR) 12/09/21 04:00 WBC RBC Hgb Hct MCV MCH MCHC RDW Plt Count Neut % (Auto) Lymph % (Auto) [place] % (Auto) Eos % (Auto) Baso % (Auto) Neut # (Auto) Lymph # (Auto) [place] # (Auto) Eos # (Auto) Baso # (Auto) Sodium 138 Potassium 3.9 Chloride 103 Carbon Dioxide 26 BUN 20 Creatinine 0.88 Estimated GFR > 60.0 BUN/Creatinine Ratio 22.7 H Glucose 99 Hemoglobin A1c Calcium 9.1 Magnesium 2.0 Total Bilirubin 0.4 Conjugated Bilirubin 0.0 Unconjugated Bilirubin 0.4 AST 23 ALT 32 Alkaline Phosphatase 97 Total Creatine Kinase CK-MB (CK-2) CK-MB (CK-2) Rel Index Troponin I NT-Pro-B Natriuret Pep Total Protein 7.2 Albumin 4.0 Globulin 3.2 Albumin/Globulin Ratio 1.3 Triglycerides 254 H Cholesterol 263 H LDL Cholesterol, Calc 182 H HDL Cholesterol 30 L Lipase SARS-CoV-2 (PCR) PFSH Medical History (Updated 12/08/21 @ 22:06 by ALAN Medina) Chest pain at rest Exertional chest pain PTSD (post-traumatic stress disorder) Family History (Updated 12/08/21 @ 22:05 by ALAN Medina) Father CAD (coronary artery disease) Mother Hypertension Social History household members: spouse and family Smoking Status: Current every day smoker Assessment & Plan Assessment & Plan narrative: Carlo Abdi is placed into observation further evaluation and workup of chest pain 1. Chest pain r/o ACS, acute, present on admission -recent echo showed only LVH, no indication for repeat -stress test ordered -aspirin, statin ordered -EKG showed no acute process, troponin negative 2. Hypertensive urgency, malignant, acute and present on admission -Continue home dose of lisinopril 20 mg po daily 3. HLD -Start/continue atorvastatin 40 mg po at bedtime 4. Tobacco dependence -recommended to stop smoking 5. PTSD -Continue home dose of lexapro 5 mg po daily Dispo: Patient awaiting stress test, hospital unable to do stress test today Time Spent With Patient Critical Care time: I spent a total of [] minutes of critical care time on this patient's care today; this time is exclusive of procedural time. Quality VTE Deep Vein Thrombosis/Pulmonary Embolism Present on Admission: No
[2021-12-09] MEDS: lisinopriL 20 MG TABLET PO (13:01)
[2021-12-09] MEDS: hydroCHLOROthiazide 25 MG TABLET PO (13:01)
--- NOTE | 2021-12-09 16:57 | CM.DANOTE ---
DCP/Assessment:Reviewed chart. Patient is a 46yr old male admitted to [place]. with chest pain. PCP is at [facility]. Primary payor is 1)[employer]. Met with patient explained role. Patient reports that he is completely I with all ADL's. Patient waiting for stress test and once that is completed hopes to d/c home. Patient denies any d/c planning needs. P: Home when stable. KJS Discharge Planning/Care Management Advanced directive, confirm from FAMILY Start: 12/08/21 21:50 Freq: Q24H Status: Active Protocol: Document 12/08/21 21:50 SH (Rec: 12/08/21 21:53 SH [id number]) Advance Directive, confirm on record Time 21:53 Person contacted patient Copy received No CM Discharge Assessment Start: 12/09/21 16:55 Freq: Status: Active Protocol: Document 12/09/21 16:55 KJS (Rec: 12/09/21 16:57 KJS [id number]) Discharge Planning Assessment Assigned Tribal Delegate JUAN MANUEL Severino Contact Information Nicole Abdi (spouse) # Advance Directives? No Advance Directives on File No History Provided By Patient,Medical Record Prior Living Arrangements House Household Members spouse,family Type of transporation used prior to Drives own vehicle admit Independent with ADL's Yes Is patient alert and oriented? Yes Caregiver for Another No Barriers to Discharge No Discharge Plan Home Transportation Arrangement Family to provide transport Referrals Initiated None needed Whiteboard Updated in Patient Room with Yes name and ext. # of Tribal Delegate Review Status In Process Next Review Type Continued Stay Review
[2021-12-10] VITALS (8 sets, daily range): BP systolic 119–164; BP diastolic 72–97; PULSE 55–69; RESP 16–18; TEMP 35.8–36.5; O2SAT 94–100
[2021-12-10 05:07] LABS: Add Manual Diff / Slide Review NO; Basophils Absolute Auto 100 /uL (0-100); Eosinophils Absolute Auto 200 /uL (0-450); Eosinophils Percent Auto 2.3 % (2-4); Hematocrit 43.4 % (41-53); Hemoglobin 14.9 g/dL (13.5-17.5); Lymphocytes Absolute Auto 2800 /uL (1100-4500); Lymphocytes Percent Auto 29.7 % (25-40); Mean Corpuscular HGB Conc 34.3 % (30-36); Mean Corpuscular Hemoglobin 27.9 PG (26-34); Mean Corpuscular Volume 81.4 fL (80-100); Monocytes Absolute Auto 1100 /uL (0-900); Neutrophils Absolute Auto 5200 /uL (1500-7000); Platelet Count 232 X10^3/uL (150-400); Red Blood Cell Count 5.33 X10^6/uL (4.5-5.9); Red Cell Distribution Width 14.1 % (11.6-14.8); White Blood Cell Count 9.4 X10^3/uL (4.5-11.0)
[2021-12-10 05:23] LABS: Alanine Aminotransferase 30 IU/L (<50); Alkaline Phosphatase 97 U/L (38-126); Aspartate Aminotransferase 21 IU/L (17-59); BUN Creatinine Ratio 19.8 (6-22); Bilirubin Total 0.5 mg/dL (0.2-1.3); Bilirubin Unconjugated 0.4 mg/dL (0.0-1.1); Blood Urea Nitrogen 18 mg/dL (9-20); Calcium 9.3 mg/dL (8.4-10.2); Carbon Dioxide 26 mmol/L (22-32); Chloride 102 mmol/L (98-107); Estimated Glomerular Filt Rate > 60.0 mL/min (>60); Glucose 101 mg/dL (70-100); Potassium 4.1 mmol/L (3.4-5.1); Sodium 136 mmol/L (137-145); Total Protein 7.1 g/dL (6.3-8.2)
[2021-12-10 05:24] LABS: Albumin Globulin Ratio 1.3 (1.0-2.8); Globulin 3.1 g/dL (1.7-4.1); HEMOLYSIS < 15 (0-50)
[2021-12-10] MEDS: hydroCHLOROthiazide 25 MG TABLET PO (10:07)
[2021-12-10] MEDS: ASPIRIN EC 81 MG TABLET PO (10:07)
[2021-12-10] MEDS: lisinopriL 20 MG TABLET PO (10:12)
[2021-12-10] MEDS: ACETAMINOPHEN 325 MG TABLET 650 MG PO (14:09)
--- NOTE | 2021-12-10 15:22 | P.PN_ITS ---
Subjective Subjective Date Patient Seen: 12/10/21 Time Patient Seen: 08:00 Interval history: He continues to have chest tightness with activity. Exam Vital Signs (past 8 hours): - 12/10/21 09:00 12/10/21 10:12 12/10/21 12:13 Temperature 96.4 F L 97 F L Pulse Rate 57 L 57 L 68 Respiratory Rate 18 18 Blood Pressure 149/88 H 149/88 H 164/97 H Pulse Oximetry 97 98 Oxygen Delivery Method Room Air Oxygen Flow Rate 0 Narrative Exam Narrative: GEN: no acute distress CV: regular rate and rhythm, no murmurs PULM: clear bilaterally Objective Labs Result Diagrams: 12/10/21 04:55 12/10/21 04:55 Labs: Laboratory Results - last 24 hr 12/10/21 12/10/21 04:55 04:55 WBC 9.4 RBC 5.33 Hgb 14.9 Hct 43.4 MCV 81.4 MCH 27.9 MCHC 34.3 RDW 14.1 Plt Count 232 Neut % (Auto) 55.0 Lymph % (Auto) 29.7 [place] % (Auto) 12.0 Eos % (Auto) 2.3 Baso % (Auto) 1.0 Neut # (Auto) 5200 Lymph # (Auto) 2800 [place] # (Auto) 1100 H Eos # (Auto) 200 Baso # (Auto) 100 Sodium 136 L Potassium 4.1 Chloride 102 Carbon Dioxide 26 BUN 18 Creatinine 0.91 Estimated GFR > 60.0 BUN/Creatinine Ratio 19.8 Glucose 101 H Calcium 9.3 Magnesium 2.0 Total Bilirubin 0.5 Conjugated Bilirubin 0.0 Unconjugated Bilirubin 0.4 AST 21 ALT 30 Alkaline Phosphatase 97 Total Protein 7.1 Albumin 4.0 Globulin 3.1 Albumin/Globulin Ratio 1.3 [facility] Medical History (Updated 12/08/21 @ 22:06 by ALAN Medina) Chest pain at rest Exertional chest pain PTSD (post-traumatic stress disorder) Family History (Updated 12/08/21 @ 22:05 by ALAN Medina) Father CAD (coronary artery disease) Mother Hypertension Social History household members: spouse and family Smoking Status: Current every day smoker Assessment & Plan Assessment & Plan narrative: Carlo Abdi is placed into observation further evaluation and workup of chest pain 1. Chest pain consistent with angina, acute, present on admission -recent echo showed only LVH, no indication for repeat -stress test is abnormal with reversible lateral wall defect -aspirin, statin will be continued -EKG showed no acute process, troponin negative 2. Hypertensive urgency, malignant, acute and present on admission -Continue home dose of lisinopril 20 mg po daily 3. HLD -Start/continue atorvastatin 40 mg po at bedtime 4. Tobacco dependence -recommended to stop smoking 5. PTSD -Continue home dose of lexapro 5 mg po daily Dispo: Plan to transfer for cardiac cath Time Spent With Patient Critical Care time: I spent a total of [] minutes of critical care time on this patient's care today; this time is exclusive of procedural time. Quality VTE Deep Vein Thrombosis/Pulmonary Embolism Present on Admission: No
--- NOTE | 2021-12-10 16:46 | PC.NURSE ---
Call placed to Bhavna regarding patients medications, Enoxaprin inj. and Lisinopril. Questions if this meds are safe to give prior to biological lab technician procedure this raj. Provider gave okay to give medication this raj. Sugg. to place 2nd IV for patient, prov. agreeable to plan.
[2021-12-11] VITALS: BP 145/85; PULSE 58; RESP 17; TEMP 36.4; O2SAT 100
[2021-12-11 02:27] VITALS: BP 125/83; PULSE 60; RESP 17; TEMP 36.1; O2SAT 97
[2021-12-11 06:00] VITALS: BP 139/87; PULSE 66; RESP 17; TEMP 35.9; O2SAT 97
[2021-12-11 06:45] LABS: Add Manual Diff / Slide Review NO; Basophils Absolute Auto 100 /uL (0-100); Basophils Percent Auto 0.8 % (0-2); Eosinophils Absolute Auto 200 /uL (0-450); Eosinophils Percent Auto 2.2 % (2-4); Hematocrit 45.6 % (41-53); Hemoglobin 15.5 g/dL (13.5-17.5); Lymphocytes Absolute Auto 2400 /uL (1100-4500); Lymphocytes Percent Auto 24.6 % (25-40); Mean Corpuscular HGB Conc 33.9 % (30-36); Mean Corpuscular Hemoglobin 27.7 PG (26-34); Mean Corpuscular Volume 81.6 fL (80-100); Monocytes Absolute Auto 1200 /uL (0-900); Monocytes Percent Auto 11.9 % (3-14); Neutrophils Absolute Auto 6000 /uL (1500-7000); Neutrophils Percent Auto 60.5 % (50-75); Platelet Count 237 X10^3/uL (150-400); Red Blood Cell Count 5.59 X10^6/uL (4.5-5.9); Red Cell Distribution Width 13.6 % (11.6-14.8); White Blood Cell Count 9.9 X10^3/uL (4.5-11.0)
[2021-12-11 06:55] LABS: Alanine Aminotransferase 32 IU/L (<50); Albumin 4.4 g/dL (3.5-5.0); Albumin Globulin Ratio 1.3 (1.0-2.8); Alkaline Phosphatase 106 U/L (38-126); Aspartate Aminotransferase 22 IU/L (17-59); BUN Creatinine Ratio 20.7 (6-22); Bilirubin Total 0.5 mg/dL (0.2-1.3); Bilirubin Unconjugated 0.5 mg/dL (0.0-1.1); Blood Urea Nitrogen 19 mg/dL (9-20); Calcium 9.6 mg/dL (8.4-10.2); Carbon Dioxide 28 mmol/L (22-32); Chloride 101 mmol/L (98-107); Estimated Glomerular Filt Rate > 60.0 mL/min (>60); Globulin 3.5 g/dL (1.7-4.1); Glucose 105 mg/dL (70-100); HEMOLYSIS < 15 (0-50); Magnesium 2.1 mg/dL (1.6-2.3); Potassium 4.1 mmol/L (3.4-5.1); Sodium 137 mmol/L (137-145); Total Protein 7.9 g/dL (6.3-8.2)
--- NOTE | 2021-12-11 18:42 | PC.NURSE ---
Per [facility] [place] Operator Hernandez, Pt is to discharge directly from [facility]. No personal belongings were left in room 211. Dr. Huggins notified, Transfer order placed by provider.
--- NOTE | 2021-12-11 20:24 | P.DS_ITS ---
History of Present Illness History of Present Illness Chief complaint: CHEST PAIN Narrative: Carlo enrique is a 46 y.o. male with minimal medical issues presented at the request of his [employer] PCP due to complaints of chest pain he has had for the past 3-4 months. Initially, he stated it would only bother him at rest, but has been increasing with exertion over the past several days. He describes it as sta rting in the middle of his chest, radiating to both sides of his chest, then down his arms to a point where his hands start to become numb.? He denies diaphoresis, neck pain, shortness of breath, nausea or vomiting, abdominal pain, dysurea, diarrhea or constipation. He has had headaches particularly worsened preceding the chest pain. He has been maintaining a log for his blood pressures and has been as high as 200-235/100-130s. He does not remember his PCPs name, but stated he recently went to [facility] for an echocardiogram and had an appointment for this coming Wednesday with his PCP to place and event monitor. Review of the echocardiogram performed at [facility] on 11/18/21 noted mild concentric left ventricular hypertrophy with an EF of 65-70%. Chest x-ray ordered in the ED was negative for any acute cardiopulmonary process.? Patient's temp is 97.0?, blood pressure 165/83, heart rate 52, respiratory rate 18, as oxygen saturation is 97% on room air he weighs 97 kg with a BMI of 29.8.? His WBC is mildly elevated 11.8 however the rest of his panel is within normal limits does have a mildly elevated monocyte count of 1300, sodium 138 potassium 4.1 chloride 101 bicarb 28 BUN 25 creatinine 1.02 with EGFR of greater than 60 glucose 99 A1c is 5.6 Mag is 2.1 liver enzymes within normal limits, troponin x2 are negative any is due for 3rd 1 at 13 30, S proBNP is mildly elevated at 246, COVID-19 PCR is negative. Discharge Providers Provider Date of admission: 12/11/21 13:40 Discharge Date: 12/11/21 Discharge provider: Johnathon Huggins MD Summary Hospital Course Discharge Diagnosis: 1. Angina 2. Hypertensive urgency 3. HL 4. [place] dependence 5. PTSD Hospital Course: Mr. Abdi was admitted with chest pain. ECHO was unremarkable. Troponins negative. Stress test showed reversible ischemia and he was transferred to [facility] for cardiac catheterization. Please note patient left hospital prior to being seen on 12/10 Exam Vital Signs (past 8 hours): Oxygen Delivery Method Room Air Oxygen Flow Rate 0 Narrative Exam Narrative: not seen day of discharge Objective Labs Result Diagrams: 12/11/21 06:12 12/11/21 06:12 Labs: Laboratory Results - last 24 hr 12/11/21 12/11/21 06:12 06:12 WBC 9.9 RBC 5.59 Hgb 15.5 Hct 45.6 MCV 81.6 MCH 27.7 MCHC 33.9 RDW 13.6 Plt Count 237 Neut % (Auto) 60.5 Lymph % (Auto) 24.6 L [place] % (Auto) 11.9 Eos % (Auto) 2.2 Baso % (Auto) 0.8 Neut # (Auto) 6000 Lymph # (Auto) 2400 [place] # (Auto) 1200 H Eos # (Auto) 200 Baso # (Auto) 100 Sodium 137 Potassium 4.1 Chloride 101 Carbon Dioxide 28 BUN 19 Creatinine 0.92 Estimated GFR > 60.0 BUN/Creatinine Ratio 20.7 Glucose 105 H Calcium 9.6 Magnesium 2.1 Total Bilirubin 0.5 Conjugated Bilirubin 0.0 Unconjugated Bilirubin 0.5 AST 22 ALT 32 Alkaline Phosphatase 106 Total Protein 7.9 Albumin 4.4 Globulin 3.5 Albumin/Globulin [facility] 1.3 [facility] Medical History (Updated 12/08/21 @ 22:06 by ALAN Medina) Chest pain at rest Exertional chest pain PTSD (post-traumatic stress disorder) Family History (Updated 12/08/21 @ 22:05 by ALAN Medina) Father CAD (coronary artery disease) Mother Hypertension Social History household members: spouse and family Smoking Status: Current every day smoker Discharge Plan Discharge Plan Patient Disposition: [facility] Other facility: [facility] Under care of provider: Dr. Thompson Provider Discharge Comment: Mr. Abdi came in to the hospital with chest pain. He did not have a heart attack. He was monitored on cardiac monitoring which showed no abnormal rhythms. His stress test was abnormal. He was transferred to [facility] to undergo cardiac cath. Discharge Health Status Multidrug resistant organism: No MDRO Diet/Activity/Treatments Diet: Diet as Tolerated Visit Report/Discharge Packet Instructions: Getting to the Heart of a Healthful Diet: Sodium, Getting to the Heart of a Healthy Diet: Protein-Rich Foods, Getting to the Heart of a Healthful Diet: Fats, Getting to the Heart of a Healthful Diet, Getting to the Heart of a Healthy Diet: Empty-Calorie Foods, Heart Healthy Physical Activity Quality VTE Deep Vein Thrombosis/Pulmonary Embolism Present on Admission: No
== END 2021-12-11 18:00 | disposition short-term general hospital (02) | DRG 311 ==
LOC: ED 16:39 → AC 20:34
PROVIDERS: Admitting Provider Nurse Practitioner Family; Emergency Provider Emergency Medicine; Visit Provider Nurse Practitioner Family
DX: I20.9 Angina pectoris, unspecified (principal); I16.0 Hypertensive urgency; E78.5 Hyperlipidemia, unspecified; F43.10 Post-traumatic stress disorder, unspecified; F17.210 Nicotine dependence, cigarettes, uncomplicated; Z20.822 Contact with and (suspected) exposure to COVID-19
CPT/HCPCS: 36415; 71045; 78452; 80048; 80053; 80061; 80076; 82550; 83036; 83690; 83735; 83880; 84484; 85025; 87635; 93005; 93010; 93017; 94762; 99284; C9803; G0378; A9502; J1650